=== PATIENT | female | born 1960 | race Caucasian/White ===

== ENCOUNTER → 2016-05-25 | Outpatient (CLI) | payer OTHER ==
--- NOTE | 2016-05-25 10:46 | XR ---
EXAMINATION TYPE: XR foot complete RT DATE OF EXAM: 05/25/2016 10:33 AM COMPARISON: NONE HISTORY: Foot pain TECHNIQUE: 3 views right foot FINDINGS: Since some varus deformity of the distal fifth digit and fourth digits are present. Postsur gical changes present over the first phalanx. Joint spaces are preserved. The Achilles tendon and lc ntar calcaneal heel spurs are present. IMPRESSION: Chronic changes. No acute osseous abnormality is evident.
--- NOTE | 2016-05-25 10:48 | XR ---
EXAMINATION TYPE: XR calcaneus 2V RT DATE OF EXAM: 05/25/2016 10:33 AM COMPARISON: NONE HISTORY: Pain TECHNIQUE: Right calcaneus is examined in 2 views. FINDINGS: Plantar and Achilles tendon calcaneal heel spurs are present. Soft tissues are normal. IMPRESSION: Normal two-view calcaneus
== END | disposition home or self-care (01) ==
LOC: RADXRMAIN 09:55
PROVIDERS: ATTEND Family Medicine
DX: M79.671 Pain in right foot (principal)

== ENCOUNTER 2016-10-27 08:51 | Day surgery (SDC) | payer OTHER ==
--- NOTE | 2016-10-26 12:10 | HP ---
DATE OF ADMISSION: CHIEF COMPLAINT: Right shoulder pain. 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 She is having pain with overhead use and at night. She has tried previous injections along with medications and stretching exercises with only partial temporary relief. She notes persistent problems that limit her. PAST MEDICAL HISTORY: Significant for type 2 diabetes, hypertension, and arthritis. PAST SURGICAL HISTORY: Significant for foot surgery. CURRENT MEDICATIONS: 1. Metformin. 2. Triamterene. 3. Levothyroxine. 4. Diclofenac. She denies drug allergies. FAMILY HISTORY: Negative. SOCIAL HISTORY: Negative for current tobacco or alcohol use. A 16-point review of systems otherwise reviewed and is noncontributory. On examination, the patient is approximately 5 foot 1, 160 pounds of endomorphic habitus. HEENT exam is nonfocal. Neck is supple. On examination of her right shoulder, she is tender about the anterior subacromial space. Moderate subacromial crepitus is noted. Active range of motion, forward elevation 155 degrees, external rotation with arm at side 65 degrees, internal rotation to L1. Motor strength is 5-/5 for external rotation and abduction. Goode, Neer and speed tests are positive. Her distal neurovascular exam appears be intact in the right upper extremity. MRI report from 08/28/2016 of the right shoulder shows a supraspinatus tendon tear with biceps tendinosis. IMPRESSION: Symptomatic right rotator cuff tear/bicipital tendinosis. RECOMMENDATIONS: I talked to the patient at length regarding her treatment options. She remains symptomatic despite conservative treatment. After thorough discussion, she opts to proceed with surgery. We will plan to proceed with arthroscopic evaluation with probable subacromial decompression, rotator cuff repair, possible biceps tenotomy. Risks and benefits are discussed at length in layman terms. The patient underwent preoperative medical evaluation by Dr. Valdez.
[~2016-10-27 08:51] MED LIST: DEXAMETHASONE SOD PHOSPHATE 10 MG/ML 1 ML VIAL IV ONE; HYDROmorphone 1 MG/ML 1 ML SYRINGE IVP PRN; LACTATED RINGERS 1,000 ML IV SCH; MIDAZOLAM 2 MG/2 ML VIAL IV PRN; SCOPOLAMINE 1.5MG/72HR PATCH TRANSDERM ONE; ceFAZolin 2 GM in SODIUM CHLORIDE 0.9% 100 ML IVPB ONE
[2016-10-27 09:10] VITALS: RESP 16
[2016-10-27] MEDS ORDERED: LIDOCAINE 1% 20 ML VIAL (10MG/ML) FOR IV START INTRADERMA ONE (09:22)
[2016-10-27] MEDS: ONDANSETRON 4 MG/2 ML VIAL IVP ONE ×3 (09:28→13:57)
[2016-10-27 09:29] LABS: Glucose,Whole Blood 146 mg/dL (75-99)
[2016-10-27] MEDS ORDERED: MIDAZOLAM 2 MG/2 ML VIAL IVP ONE ×2 (09:40→10:45)
[2016-10-27] MEDS ORDERED: fentaNYL (PF) 50 MCG/ML 2 ML AMP IVP ONE ×2 (09:40→10:45)
--- NOTE | 2016-10-27 10:15 | P.ONQ ---
Anesthesiology Proc Note - PNB - Peripheral Nerve Block Performed Right Interscalene Single Time Out Performed: Yes Indication: Acute Post-Operative Pain, Analgesia Specifically requested for management of pain by : Harrison Borden Sedation Type: Sedate with meaningful contact maintained Preparation: Sterile Prep Position: Supine Catheter: None Needle Types: Other (see comment) (Pajunk Sonoplex) Needle Size: 50mm (2") Needle Gauge: Other (see comment) (22) Technique: Ultrasound Injectate: Other (see comment) (Ropivicane 0.5% 15cc plus Lidocaine 2% 15cc) Adjunct: Epinephrine (see comment for dilution ratio) (1:200,000) Blood Aspirated: No Pain Paresthesia on Injection Noted: No Resistance on Injection: Normal Events: Uneventful and Well Tolerated
[2016-10-27] MEDS ORDERED: PHENYLEPHRINE-0.9% NACL SYG 1 MG/10 ML SYRINGE ONE (11:10)
[2016-10-27] MEDS ORDERED: SUCCINYLCHOLINE CHLORIDE 100 MG/5 ML SYR IV ONE (11:10)
[2016-10-27] MEDS ORDERED: PROPOFOL 10 MG/ML 20 ML VIAL IV ONE (11:10)
[2016-10-27] MEDS ORDERED: fentaNYL (PF) 50 MCG/ML 2 ML AMP ONE (11:10)
[2016-10-27] MEDS ORDERED: LACTATED RINGERS 1,000 ML IV ONE (11:35)
--- NOTE | 2016-10-27 12:39 | P.OP ---
Date of Procedure: 10/27/16 Preoperative Diagnosis: Symptomatic right rotator cuff tear Postoperative Diagnosis: 3 cm right shoulder rotator cuff tear/high-grade partial-thickness tear long head of the biceps/impingement Procedure(s) Performed: Right shoulder arthroscopic subacromial decompression/biceps tenotomy/rotator cuff repair Implants: Mitec 4.75 mm corkscrew anchor 4 Anesthesia: lary BELLAMY Surgeon: Harrison Borden [facility] Att[facility] #1: Joao Graff Estimated Blood Loss (ml): 10 Pathology: none sent Condition: stable Disposition: PACU Indications for Procedure: The patient's a 56-year-old female who presents with progressive right shoulder pain despite conservative measures. Clinically and by MRI she was noted have a symptomatic rotator cuff tear. A discussion of the risks and benefits of operative intervention versus continued conservative measures was made with the patient. She opted to proceed with surgery. Operative risks to include infection, neurovascular injury, possible tendon rerupture, possible postoperative stiffness and need for subsequent procedures was discussed. Informed consent was obtained. Operative Findings: As below Description of Procedure: The patient was brought to the operating room, and after induction of general anesthesia I examined the right shoulder. There is no gross block to passive motion. There was no gross glenohumeral instability. She is placed into a beachchair position. The bony prominences were appropriately padded. The right upper extremity was prepped and draped in normal fashion. The bony outlines the acromion, distal clavicle, and coracoid process were outlined with a skin marker. The glenohumeral joint was inflated with 50 mL of saline utilizing a spinal needle from posterior approach. A posterior portal was made through a 5 mm skin incision 1 cm medial and inferior to the posterior lateral border of the acromion. A blunt trocar was used to easily into the joint. Diagnostic arthroscopy was performed. An anterior portals made just lateral to the coracoid process through a 5 mm skin incision entering the joint above the subscapularis tendon. The subscapularis appeared intact. The anterior labrum was intact. On inspection the biceps, high-grade partial-thickness tear involving the intra-articular portion was noted. It was elected to proceed with tenotomy at this point. The biceps was released from the superior labrum and allowed to retract to the bicipital groove with electrocautery. On inspection the rotator cuff it appeared intact on the articular surface. The posterior labrum was intact. The inferior recess was inspected. Minimal degenerative changes involving glenoid or humeral head were noted. The arthroscope was then placed into the subacromial space. A lateral portal was made through a 5 mm skin incision 2 cm inferior to the anterior lateral border of the acromion. The soft tissue on the undersurface of the acromion was debrided with motorized shaver and electrocautery clearly defining the anterior medial and lateral borders as well as the distal clavicle. An anterior inferior acromioplasty is performed with a motorized meche starting anterolateral , then extending this was serially then medially. I was able to convert to a flat acromion. This was verified from the posterior lateral viewing portals. Attention was then paid towards the rotator cuff. A 3 cm tear involving the bursal surface of the supraspinatus and a portion the infraspinatus was noted. There were a few fibers intact on the articular surface. This was debrided with motorized shaver completely tear. The greater tuberosity was lightly decorticated with a motorized meche down to a bleeding bony surface. The rotator cuff was easily mobilized back to the tuberosity. An accessory superior lateral portals made through a 4 mm skin incision just off the lateral edge of the acromion. This was used for anchor placement. Two 4.75 millimeter bioabsorbable anchors were then placed utilizing the appropriate starting awl just off the articular surface. #2 tape was then passed through the rotator cuff with a scorpion suture passer. A lateral row was created crisscrossing the sutures and appropriate tension was performed. Again to anchors 4.75 mm in diameter were placed. Good purchase was obtained. Final arthroscopic view showed adequate striction and compression of the footprint. The arthroscope was then removed. The portals were closed with 3-0 nylon sutures. A sterile dressing was applied in addition to an abductor brace. The patient was awoken from general anesthesia and transferred to the recovery room in good condition. Blood loss was estimated 10 mL. No complications were incurred. Sponge and needle counts were correct at the end the case.
[2016-10-27 12:45] VITALS: TEMP 96.8
[2016-10-27 12:57] LABS: Glucose,Whole Blood 169 mg/dL (75-99)
[2016-10-27 13:46] VITALS: PULSE 94
[2016-10-27 14:31] VITALS: BP 122/79
== END 2016-10-27 14:45 | disposition home health service (06) ==
LOC: OR 08:51
PROVIDERS: ATTEND Orthopaedic Surgery
DX: M75.111 Incomplete rotator cuff tear or rupture of right shoulder, not specified as traumatic (principal); S46.111A Strain of muscle, fascia and tendon of long head of biceps, right arm, initial encounter; X58.XXXA Exposure to other specified factors, initial encounter; M75.41 Impingement syndrome of right shoulder; E11.9 Type 2 diabetes mellitus without complications; Z79.84 Long term (current) use of oral hypoglycemic drugs; I10 Essential (primary) hypertension; Z79.1 Long term (current) use of non-steroidal anti-inflammatories (NSAID); Z79.899 Other long term (current) drug therapy; E07.9 Disorder of thyroid, unspecified; Z79.52 Long term (current) use of systemic steroids
CPT/HCPCS: 64415; 29826; 29827; C1713; C1894; J2250; J1100; J0690; J2405; J3010; J2370; J0330; J2704

== ENCOUNTER → 2017-08-20 | Outpatient (CLI) | payer OTHER ==
--- NOTE | 2017-08-21 20:02 | XR ---
EXAMINATION TYPE: XR foot complete RT DATE OF EXAM: 08/20/2017 CLINICAL HISTORY: Right foot pain after stepping injury. TECHNIQUE: Frontal, lateral, and oblique images of the right foot are obtained. COMPARISON: Right foot x-ray May 25, 2016. FINDINGS: There is no acute fracture/dislocation evident in the right foot. There is evidence of bun ion correction surgery first toe, there is persistent cerclage wire in the first proximal phalanx. Al ignment is stable with slight varus deformity and mild to moderate joint space loss first metatarsoph alangeal joint redemonstrated. Pineda's toe is redemonstrated. Flexion in the toes is again seen. The re are small to moderate-sized superior calcaneal spurs that are redemonstrated. Mild diffuse subcuta neous edema is redemonstrated. IMPRESSION: There is no acute fracture or dislocation in the right foot. No significant change from prior x-ray.
== END | disposition home or self-care (01) ==
LOC: RADXRMAIN 16:02
PROVIDERS: ATTEND Family Medicine
DX: M79.671 Pain in right foot (principal)

== ENCOUNTER → 2017-09-29 | Outpatient (CLI) | payer OTHER ==
[2017-09-29 10:23] LABS: Basophils % (A) 0 %; Eosinophils # (A) 0.2 k/uL (0-0.7); Eosinophils % (A) 5 %; HCT 34.8 % (34.0-46.0); Hypochromasia Slight; Lymphocytes # (A) 1.5 k/uL (1.0-4.8); Lymphocytes % (A) 37 %; MCHC 31.5 g/dL (31.0-37.0); MCV 76.2 fL (80.0-100.0); Mean Platelet Volume 6.8; Microcytosis Slight; Monocytes # (A) 0.2 k/uL (0-1.0); Monocytes % (A) 5 %; Neutrophils # (A) 2.1 k/uL (1.3-7.7); Neutrophils % (A) 51 %; Platelet Count 385 k/uL (150-450); RBC 4.56 m/uL (3.80-5.40); RDW 15.2 % (11.5-15.5); WBC 4.2 k/uL (3.8-10.6)
[2017-09-29 10:41] LABS: ALT 30 U/L (9-52); AST 22 U/L (14-36); Albumin 3.8 g/dL (3.5-5.0); Alkaline Phosphatase 116 U/L (38-126); Anion Gap 10 mmol/L; Blood Urea Nitrogen 15 mg/dL (7-17); Calcium 9.1 mg/dL (8.4-10.2); Carbon Dioxide 28 mmol/L (22-30); Chloride 103 mmol/L (98-107); Cholesterol 230 mg/dL (<200); Glucose 147 mg/dL (74-99); HDL Cholesterol 40 mg/dL (40-60); LDL Cholesterol,Calculated 163 mg/dL (0-99); Potassium 3.5 mmol/L (3.5-5.1); Sodium 141 mmol/L (137-145); Total Bilirubin 0.3 mg/dL (0.2-1.3); Total Protein 6.9 g/dL (6.3-8.2); Triglycerides 136 mg/dL (<150)
== END | disposition home or self-care (01) ==
LOC: LABWHC1 09:07
PROVIDERS: ATTEND Family Medicine
DX: Z00.00 Encounter for general adult medical examination without abnormal findings (principal); Z01.812 Encounter for preprocedural laboratory examination; E11.9 Type 2 diabetes mellitus without complications; E78.5 Hyperlipidemia, unspecified; I10 Essential (primary) hypertension
CPT/HCPCS: 36415; 80053; 80061; 84439; 84443; 85025

== ENCOUNTER → 2017-10-23 | Outpatient (CLI) | payer OTHER ==
[2017-10-23 10:07] LABS: Basophils % (A) 0 %; Eosinophils # (A) 0.3 k/uL (0-0.7); Eosinophils % (A) 5 %; HCT 36.7 % (34.0-46.0); HGB 11.5 gm/dL (11.4-16.0); Lymphocytes % (A) 34 %; MCH 23.4 pg (25.0-35.0); MCHC 31.3 g/dL (31.0-37.0); MCV 74.8 fL (80.0-100.0); Mean Platelet Volume 6.1; Microcytosis Slight; Monocytes # (A) 0.3 k/uL (0-1.0); Monocytes % (A) 6 %; Neutrophils % (A) 52 %; Platelet Count 391 k/uL (150-450); RBC 4.91 m/uL (3.80-5.40); RDW 15.3 % (11.5-15.5); WBC 5.8 k/uL (3.8-10.6)
[2017-10-23 10:18] LABS: ALT 31 U/L (9-52); AST 23 U/L (14-36); Albumin 4.1 g/dL (3.5-5.0); Alkaline Phosphatase 144 U/L (38-126); Anion Gap 10 mmol/L; Blood Urea Nitrogen 13 mg/dL (7-17); Calcium 9.3 mg/dL (8.4-10.2); Carbon Dioxide 29 mmol/L (22-30); Chloride 100 mmol/L (98-107); Glucose 139 mg/dL (74-99); Potassium 3.9 mmol/L (3.5-5.1); Sodium 139 mmol/L (137-145); Total Bilirubin 0.4 mg/dL (0.2-1.3); Total Protein 7.3 g/dL (6.3-8.2)
== END | disposition home or self-care (01) ==
LOC: LABPAT 09:39
PROVIDERS: ATTEND Family Medicine
DX: Z01.818 Encounter for other preprocedural examination (principal); Z01.812 Encounter for preprocedural laboratory examination
CPT/HCPCS: 36415; 80053; 85025; 93005

== ENCOUNTER 2017-10-29 05:57 | Day surgery (SDC) | payer OTHER ==
[2017-10-26 09:05] VITALS: BMI 31.4
--- NOTE | 2017-10-28 09:57 | HP ---
HISTORY AND PHYSICAL CHIEF COMPLAINT: Left shoulder pain. HISTORY OF PRESENT ILLNESS: The patient is a 57-year-old, left-hand dominant female who presents with progressive left shoulder pain, worsening over the past 6 months. She is having pain with overhead use and at night. She has tried an injection along with medications with only partial temporary relief. She notes the pain bothers her daily. PAST MEDICAL HISTORY: Significant for type 2 diabetes, hypertension. PAST SURGICAL HISTORY: Significant for right shoulder arthroscopy in addition to foot surgery. CURRENT MEDICATIONS: 1. Levothyroxine. 2. Metformin. 3. Triamterene/hydrochlorothiazide. She denies drug allergies. FAMILY HISTORY: Negative. SOCIAL HISTORY: Negative for current tobacco or alcohol use. REVIEW OF SYSTEMS: A 16 point review of systems otherwise reviewed and is noncontributory. PHYSICAL EXAMINATION: The patient is approximately 5 foot 1, 160 pounds of endomorphic habitus. HEENT exam is nonfocal. Neck is supple. On examination of her left shoulder, she is tender about the anterior subacromial space. She has mild subacromial crepitus. Active range of motion, forward elevation 135 degrees, external rotation with the arm side 50 degrees, internal rotation L4. Motor strength is 5-/5 for abduction and external rotation. Goode, Neer and Speed tests are positive. Her distal neurovascular exam otherwise appears intact in the left upper extremity. MRI report for the left shoulder shows evidence of a high-grade partial-thickness articular surface tear involving the distal supraspinatus. There is also question of an intra-articular biceps tear. IMPRESSION: 1. Left shoulder impingement with high-grade partial-thickness rotator cuff tear. 2. Left shoulder bicipital tendinosis, possible tear. 3. Type 2 diabetes. RECOMMENDATIONS: I talked to the patient at length regarding her condition and treatment options. At this point, she remains quite symptomatic despite conservative measures. After a thorough discussion, she opts to proceed with surgery. We will plan to proceed with arthroscopic evaluation with probable subacromial decompression, possible rotator cuff debridement versus repair, and possible biceps tenotomy. Risks and benefits were discussed at length in layman's terms. The patient underwent preoperative medical evaluation by Dr. Valdez. MMDARIOL / HEATHERN: [id number] /
[~2017-10-29 05:57] MED LIST changes: +HYDROmorphone 0.5 MG/0.5 ML SYRINGE IVP PRN; -HYDROmorphone 1 MG/ML 1 ML SYRINGE IVP PRN; +ONDANSETRON 4 MG/2 ML VIAL IVP ONE; -SCOPOLAMINE 1.5MG/72HR PATCH TRANSDERM ONE; +ceFAZolin 1,000 MG in DEXTROSE/WATER 1 50ML.BAG IV ONE; -ceFAZolin 2 GM in SODIUM CHLORIDE 0.9% 100 ML IVPB ONE
[2017-10-29] MEDS ORDERED: LIDOCAINE 1% 20 ML VIAL (10MG/ML) FOR IV START INTRADERMA ONE (06:50)
[2017-10-29 07:06] LABS: Glucose,Whole Blood 149 mg/dL (75-99)
[2017-10-29] MEDS ORDERED: fentaNYL (PF) 50 MCG/ML 2 ML AMP IVP ONE (07:15)
--- NOTE | 2017-10-29 07:49 | P.ONQ ---
Anesthesiology Proc Note - PNB - Peripheral Nerve Block Performed Left Interscalene Single Procedure Start Time: 07:15 Procedure Stop Time: :25 Indication: Requested by physician Specifically requested for management of pain by : Harrison Borden Sedation Type: Sedate with meaningful contact maintained Preparation: Sterile Prep Position: Supine Needle Types: Other (see comment) (21 G PUJUNK) Needle Size: 50mm (2") Needle Gauge: 21 Technique: Ultrasound Injectate: 0.5% Ropivacaine (see comment for volume) (20 ml) Resistance on Injection: Normal Events: Uneventful and Well Tolerated
[2017-10-29] MEDS ORDERED: LIDOCAINE 1% INJ 10MG/ML (20 ML MDV) ONE (07:58)
[2017-10-29] MEDS ORDERED: ROPIVACAINE 5 MG/ML 30 ML VIAL ONE (07:58)
[2017-10-29] MEDS ORDERED: SUCCINYLCHOLINE CHLORIDE 100 MG/5 ML SYR IV ONE (07:58)
[2017-10-29] MEDS ORDERED: ROCURONIUM BROMIDE 10 MG/ML 10 ML VIAL IV ONE (07:58)
[2017-10-29] MEDS ORDERED: PROPOFOL 10 MG/ML 20 ML VIAL IV ONE (07:58)
[2017-10-29] MEDS ORDERED: NEOSTIGMINE 1 MG/ML 10 ML VIAL ONE (07:58)
[2017-10-29] MEDS ORDERED: GLYCOPYRROLATE 0.2 MG/ML 2 ML VIAL ONE (07:58)
[2017-10-29] MEDS ORDERED: ePHEDrine SULFATE/0.9% NACL/PF 50 MG/5 ML SYRINGE IV ONE (07:58)
[2017-10-29] MEDS ORDERED: fentaNYL (PF) 50 MCG/ML 2 ML AMP ONE (07:58)
[2017-10-29] MEDS ORDERED: EPINEPHrine (PF) 1 ML in SODIUM CHLORIDE 0.9% IRRIGATIO 3,000 ML IRRIGATION ONE ×8 (08:12)
[2017-10-29] MEDS ORDERED: LACTATED RINGERS 1,000 ML IV ONE (09:19)
--- NOTE | 2017-10-29 09:36 | P.OP ---
Date of Procedure: 10/29/17 Preoperative Diagnosis: Left shoulder impingement/rotator cuff tear Postoperative Diagnosis: Same in addition to 1.5 cm rotator cuff tear/high-grade partial-thickness tear long head of the biceps intra-articular portion Procedure(s) Performed: Left shoulder arthroscopic subacromial decompression/arthroscopic rotator cuff repair/biceps tenotomy Implants: Arthrex 4.75 mm swivel lock anchor 1, 5.5 mm swivel lock anchor 1 Anesthesia: EVA, regional Surgeon: Harrison Borden Estimated Blood Loss (ml): 10 Pathology: none sent Condition: stable Disposition: PACU Indications for Procedure: The patient's a 57-year-old female who presents with progressive left shoulder pain despite conservative measures. A discussion of the risks and benefits of operative intervention versus continued conservative measures was made with the patient. She opted to proceed with surgery. Operative risks to include infection, neurovascular injury, development of blood clots, possible tendon rerupture, possible postoperative stiffness and need for subsequent procedures was discussed. Informed consent was obtained. Operative Findings: As below Description of Procedure: The patient was brought to the operating room, and after induction of general anesthesia was placed in a beachchair position. The bony prominences were appropriately padded. I examined the left shoulder. There was no gross block to passive motion. There was no gross glenohumeral instability. The left upper extremity was prepped and draped in normal fashion. The bony outlines the acromion, distal clavicle, and coracoid process were outlined with a skin marker. The glenohumeral joint was inflated with 50 mL of saline utilizing a spinal needle from a posterior approach. A posterior portal was made through a 5 mm skin incision 1 a medial and inferior to the posterior lateral border the acromion. A blunt trocar was used to easily into the joint. Diagnostic arthroscopy was performed. An anterior portal was made just lateral to the coracoid process entering the joint above the subscapularis tendon. The subscapularis appeared to be intact. Anterior labrum was intact. There is no significant chondral injury involving humeral head or glenoid. On inspection of the biceps, a high-grade partial-thickness tear involving injury to a portion was noted. It was elected to proceed with tenotomy at this point. The biceps was released from the superior labrum with electrocautery and allowed to retract to the bicipital groove. On inspection the rotator cuff, a full- thickness tear involving the anterior aspect of the supraspinatus was noted. The edges were debrided with a motorized shaver. The posterior portion the cuff appeared intact. The inferior recess was inspected. The arthroscope was placed into the subacromial space. A lateral portal was made through a 5 mm skin incision 2 cm inferior to the anterolateral border the acromion. The soft tissue on the undersurface of the acromion was debrided with a motorized shaver and with electrocautery clearly defining the anterior medial and lateral borders. The coracoacromial ligament was detached from the anterior acromion with electrocautery. An anterior inferior acromioplasty is performed with a motorized meche starting anterolateral, then extending this posteriorly, then extending this medially. Is able to convert to a flat acromion. This is verified from the posterior and lateral viewing portals. The rotator cuff was then inspected. A full-thickness tear involving the anterior aspect the supraspinatus was noted to measuring proximal 1.5 cm. The greater tuberosity was lightly decorticated utilizing a motorized meche Denno bleeding bony surface. Accessory superior lateral portals made just off the lateral edge of the acromion for placement of the anchors. A starting awl was used just off the articular surface for placement of a 4.75 mm swivel lock anchor. This was preloaded with #2 fiber tape. These were then passed through the rotator cuff with a scorpion suture passer. A fiber link was placed in the central portion of the tear to help with reapproximation. A 5.5 mm swivel lock anchor was placed laterally utilizing all the sutures. They were appropriately tensioned. Final inspection showed adequate compression of the footprint. The arthroscope was then removed. The portals were closed with simple 3-0 nylon suture. A sterile dressing was applied in addition to an abductor brace. The patient was then awoken from general anesthesia and transferred to the recovery room in good condition. Blood loss was estimated 10 mL. No complications were incurred. Sponge and needle counts were correct at the end of the case.
[2017-10-29 09:43] VITALS: TEMP 96.8
[2017-10-29 09:51] VITALS: RESP 18
[2017-10-29 10:51] VITALS: BP 130/77; PULSE 100
== END 2017-10-29 11:43 | disposition home or self-care (01) ==
LOC: OR 05:57
PROVIDERS: ATTEND Orthopaedic Surgery
DX: M75.102 Unspecified rotator cuff tear or rupture of left shoulder, not specified as traumatic (principal); S46.112A Strain of muscle, fascia and tendon of long head of biceps, left arm, initial encounter; X58.XXXA Exposure to other specified factors, initial encounter; I10 Essential (primary) hypertension; E11.9 Type 2 diabetes mellitus without complications; Z79.84 Long term (current) use of oral hypoglycemic drugs; E78.5 Hyperlipidemia, unspecified; Z79.890 Hormone replacement therapy; Z79.899 Other long term (current) drug therapy; Z79.1 Long term (current) use of non-steroidal anti-inflammatories (NSAID); Z79.891 Long term (current) use of opiate analgesic
CPT/HCPCS: 64415; 29826; 29827; C1713 ×3; C1894; J2250; J1100; J2710; J2405; J0171; J2001; J3010; J0690; J2795; J0330; J2704

== ENCOUNTER → 2017-12-01 | Outpatient (CLI) | payer OTHER ==
[2017-12-01 11:19] LABS: Basophils % (A) 0 %; Eosinophils # (A) 0.2 k/uL (0-0.7); Eosinophils % (A) 4 %; HCT 36.5 % (34.0-46.0); HGB 11.3 gm/dL (11.4-16.0); Lymphocytes # (A) 1.8 k/uL (1.0-4.8); Lymphocytes % (A) 32 %; MCH 23.6 pg (25.0-35.0); MCHC 31.1 g/dL (31.0-37.0); MCV 75.8 fL (80.0-100.0); Mean Platelet Volume 6.9; Microcytosis Slight; Monocytes # (A) 0.3 k/uL (0-1.0); Monocytes % (A) 5 %; Neutrophils % (A) 56 %; Platelet Count 381 k/uL (150-450); RBC 4.81 m/uL (3.80-5.40); RDW 15.2 % (11.5-15.5); WBC 5.4 k/uL (3.8-10.6)
--- NOTE | 2017-12-01 11:21 | XR ---
EXAMINATION TYPE: XR sternum DATE OF EXAM: 12/01/2017 COMPARISON: NONE HISTORY: Sternal pain/tenderness and palpable abnormality superior to the sternum since 11/11/2017. TECHNIQUE: 2 views of the sternum were obtained. FINDINGS: No suspicious osseous lesion is seen within the sternum. No cortical erosion or periosteal reaction. No evidence of acute fracture or dislocation. No cortical disruption is seen. Visualized linda ngs appear well aerated. IMPRESSION: No suspicious abnormality of the sternum. If there is further clinical concern bone scan could evaluate for focal uptake. Given the palpable abnormality ultrasound could also be performed fo r the suprasternal palpable mass.
[2017-12-01 11:47] LABS: Albumin 3.9 g/dL (3.5-5.0); Calcium 9.4 mg/dL (8.4-10.2); Potassium 3.6 mmol/L (3.5-5.1); Total Bilirubin 0.3 mg/dL (0.2-1.3); Total Protein 7.1 g/dL (6.3-8.2)
[2017-12-01 12:03] LABS: T4, Free (Free Thyroxine) 1.29 ng/dL (0.78-2.19)
== END | disposition home or self-care (01) ==
LOC: LABWHC1 10:27
PROVIDERS: ATTEND Family Medicine
DX: R22.1 Localized swelling, mass and lump, neck (principal)
CPT/HCPCS: 36415; 71120; 80053; 84439; 84443; 85025

== ENCOUNTER → 2018-03-01 | Outpatient (CLI) | payer OTHER ==
--- NOTE | 2018-03-01 14:06 | XR ---
EXAMINATION TYPE: XR foot complete bilateral DATE OF EXAM: 03/01/2018 CLINICAL HISTORY: Bilateral foot pain. Diabetic. No known injury. History of bunion surgery. TECHNIQUE: Frontal, lateral, and oblique images of bilateral feet were obtained. COMPARISON: 08/20/2017 FINDINGS: There is been prior bunion repair bilaterally with proximal phalanx cerclage wires. There r emains a hallux valgus deformity of both first metatarsals. Pineda's toe is redemonstrated bilaterall y. Very mild degenerative changes of the first metatarsal phalangeal joint demonstrated as opposing s urface sclerosis and joint space narrowing are again seen. No evidence of acute fracture or dislocati on seen within either foot. Bilaterally there are small plantar heel spurs. Very small bilateral Achi lles heel spurs are also seen. IMPRESSION: 1. No acute fracture or dislocation of either foot. Similar-appearing mild arthropathy at the first m etatarsophalangeal joint on the right foot in comparison to the prior. Symmetric mild arthropathy is seen on the left. Achilles and plantar heel spurs are redemonstrated.
== END ==
LOC: RADXRMAIN 12:18
PROVIDERS: ATTEND Family Medicine
DX: M12.88 Other specific arthropathies, not elsewhere classified, other specified site (principal); M77.31 Calcaneal spur, right foot

== ENCOUNTER 2021-01-30 23:39 | Emergency (ER) | payer OTHER, MEDICARE ==
[2021-01-30 23:51] VITALS: TEMP 98
[2021-01-31] MEDS ORDERED: MORPHINE SULFATE 2 MG/ML SYRINGE IVP STA (00:07)
[2021-01-31] MEDS ORDERED: ONDANSETRON 4 MG/2 ML VIAL IVP STA (00:08)
[2021-01-31 00:29] LABS: Basophils % (A) 0 %; Eosinophils # (A) 0.2 k/uL (0-0.7); Eosinophils % (A) 2 %; HCT 33.4 % (34.0-46.0); HGB 11.4 gm/dL (11.4-16.0); Lymphocytes # (A) 2.2 k/uL (1.0-4.8); Lymphocytes % (A) 20 %; MCH 32.9 pg (25.0-35.0); MCHC 34.2 g/dL (31.0-37.0); MCV 96.3 fL (80.0-100.0); Mean Platelet Volume 7.6; Monocytes # (A) 0.8 k/uL (0-1.0); Monocytes % (A) 7 %; Neutrophils # (A) 7.7 k/uL (1.3-7.7); Neutrophils % (A) 69 %; Platelet Count 447 k/uL (150-450); RBC 3.47 m/uL (3.80-5.40); RDW 13.8 % (11.5-15.5); WBC 11.2 k/uL (3.8-10.6)
[2021-01-31 00:50] LABS: INR 0.9 (<1.2); Partial Thromboplastin Time 23.3 sec (22.0-30.0); Prothrombin Time 9.4 sec (9.0-12.0)
[2021-01-31 00:53] LABS: ALT 11 U/L (4-34); AST 19 U/L (14-36); African American GFR (CKD) >90 (>60 ml/min/1.73 sqM); Albumin 3.7 g/dL (3.5-5.0); Alkaline Phosphatase 118 U/L (38-126); Anion Gap 7 mmol/L; Blood Urea Nitrogen 10 mg/dL (7-17); Carbon Dioxide 25 mmol/L (22-30); Chloride 103 mmol/L (98-107); Glucose 135 mg/dL (74-99); Lipase 70 U/L (23-300); Magnesium 1.9 mg/dL (1.6-2.3); Non-African American GFR(CKD) >90 (>60 ml/min/1.73 sqM); Potassium 3.7 mmol/L (3.5-5.1); Sodium 135 mmol/L (137-145); Total Bilirubin 0.6 mg/dL (0.2-1.3); Total Protein 7.1 g/dL (6.3-8.2)
--- NOTE | 2021-01-31 01:05 | XR ---
EXAMINATION TYPE: XR ribs RT w pa chest xray DATE OF EXAM: 01/31/2021 COMPARISON: NONE HISTORY: Rib pain TECHNIQUE: 3 views FINDINGS: Heart and mediastinum are normal. Lungs are clear of infiltrate. There is no pleural effusi on. There are no hilar masses. Costophrenic angles are clear. There is no evidence of pleural effusion or pneumothorax. The right ribs appear intact. IMPRESSION: Normal chest. Normal right ribs. No fracture seen.
--- NOTE | 2021-01-31 01:20 | ED ---
General Adult HPI - General Chief complaint: Chest Pain Stated complaint: Chest Pain Time Seen by Provider: 01/30/21 23:57 Source: patient Mode of arrival: wheelchair Limitations: no limitations - History of Present Illness Initial comments: 60 year-old female patient presents to the emergency department for evaluation of right sided chest pain. Patient states she was sitting on the floor with her grandchild playing, she went to get up and had a sharp, stabbing pain to the right side of her chest. States that the pain worsens with inspiration and mov ement. She does feel short of breath. She was diagnosed with COVID 01/18/21. States she is much improved but still has lingering cough. She denies any recent fever or chills. Denies any history of heart problems. Is not a smoker. States her playing with her grandchild was not strenuous in any way. Patient denies any recent rash, abdominal pain, nausea, vomiting, diarrhea, constipation, back pain, numbness, tingling, dizziness, weakness, hematuria, dysuria, urinary urgency, urinary frequency, headache, visual changes, or any other complaints. - Related Data Home Medications Medication Instructions Recorded Confirmed Levothyroxine Sodium [Synthroid] 75 mcg PO DAILY 06/12/14 10/26/17 Triamterene-Hctz 37.5-25Mg 1 tab PO DAILY 06/12/14 10/26/17 [Maxzide 37.5-25] metFORMIN HCL [Glucophage] 500 mg PO BID 06/12/14 10/26/17 Ibuprofen [Motrin] 600 mg PO Q6H PRN 10/22/16 10/26/17 Atorvastatin [Lipitor] 20 mg PO DAILY 10/26/17 10/26/17 Diclofenac Sodium [Voltaren] 50 mg PO BID PRN 10/26/17 10/26/17 Ketotifen 0.025% Ophth Soln 1 drop BOTH EYES BID 10/26/17 10/26/17 [Zaditor] Loratadine 10 mg PO DAILY 10/26/17 10/26/17 Phentermine HCl [Adipex P] 15 mg PO DAILY 10/26/17 10/26/17 Previous Rx's Medication Instructions Recorded HYDROcodone/APAP 7.5-325MG [[place] 1 tab PO Q4-6H PRN #28 tab 10/29/17 7.5-325] predniSONE 50 mg PO DAILY #5 tablet 01/31/21 Allergies Allergy/AdvReac Type Severity Reaction Status Date / Time No Known Allergies Allergy Verified 01/30/21 23:51 Review of Systems ROS Statement: Those systems with pertinent positive or pertinent negative responses have been documented in the HPI. ROS Other: All systems not noted in ROS Statement are negative. Past Medical History Past Medical History: Diabetes Mellitus, Hypertension, Thyroid Disorder Additional Past Medical History / Comment(s): SPURS ON RIGHT HEEL History of Any Multi-Drug Resistant Organisms: None Reported Past Surgical History: Orthopedic Surgery Additional Past Surgical History / Comment(s): BUNIONS BILATERAL IN 2015. Past Anesthesia/Blood Transfusion Reactions: No Reported Reaction Past Psychological History: No Psychological Hx Reported Smoking Status: Never smoker Past Alcohol Use History: Rare Past Drug Use History: None Reported - Past Family History Father Family Medical History: Cancer General Exam Limitations: no limitations General appearance: alert, in no apparent distress, other (This is a well- developed, well-nourished adult female patient in no acute distress. Vital signs upon presentation temperature 98.0F, pulse 110, respirations 18, blood pressure 121/78, pulse ox 95% on room air.) Eye exam: Present: normal appearance, PERRL, EOMI. Absent: scleral icterus, conjunctival injection, periorbital swelling ENT exam: Present: normal exam, normal oropharynx, mucous membranes moist Respiratory exam: Present: normal lung sounds bilaterally. Absent: respiratory distress, wheezes, rales, rhonchi, stridor Cardiovascular Exam: Present: normal rhythm, tachycardia, normal heart sounds. Absent: systolic murmur, diastolic murmur, rubs, gallop, clicks GI/Abdominal exam: Present: soft, normal bowel sounds. Absent: distended, tenderness, guarding, rebound, rigid Neurological exam: Present: alert, oriented X3, CN II-XII intact Psychiatric exam: Present: normal affect, normal mood Skin exam: Present: warm, dry, intact, normal color. Absent: rash Course Vital Signs 01/30/21 23:46 Temperature 98 F Pulse Rate 110 H Respiratory 18 Rate Blood Pressure 121/78 O2 Sat by Pulse 95 Oximetry EKG Findings - EKG Comments: EKG Findings:: EKG obtained at 2358 shows normal sinus rhythm with a ventricular rate of 98, [place] interval 156, QRS duration 74, QT 372, QTc 474. No evidence of ST elevation or depression. Medical Decision Making - Medical Decision Making 60-year-old female patient presented to the emergency department today for evaluation of right-sided chest pain. Physical examination revealed clear equal lung sounds. Pain was not reproducible with palpation. Was increased with breathing and movement. EKG was unremarkable. Chest x-ray negative. Right rib series negative. She did have elevated d-dimer. We did sent for CT chest angiography. Showed evidence for right middle lobe pneumonia. Patient is currently recovering from Covid. This is most likely viral pneumonia given normal white blood cell count and lack of a fever. We will start prednisone for persistent cough. She is instructed to follow up with her primary care physician for recheck in 1-2 days. Return parameters were discussed in detail. She verbalizes understanding and agrees with this plan. Case discussed with my attending Dr. Velez. - Lab Data Result diagrams: 01/31/21 00:21 01/31/21 00:21 Lab Results 01/31/21 01/31/21 01/31/21 Range/Units 00:21 00:21 00:21 WBC 11.2 H (3.8-10.6) k/uL RBC 3.47 L (3.80-5.40) m/uL Hgb 11.4 (11.4-16.0) gm/dL Hct 33.4 L (34.0-46.0) % MCV 96.3 (80.0-100.0) fL MCH 32.9 (25.0-35.0) pg MCHC 34.2 (31.0-37.0) g/dL RDW 13.8 (11.5-15.5) % Plt Count 447 (150-450) k/uL MPV 7.6 Neutrophils % 69 % Lymphocytes % 20 % Monocytes % 7 % Eosinophils % 2 % Basophils % 0 % Neutrophils # 7.7 (1.3-7.7) k/uL Lymphocytes # 2.2 (1.0-4.8) k/uL Monocytes # 0.8 (0-1.0) k/uL Eosinophils # 0.2 (0-0.7) k/uL Basophils # 0.0 (0-0.2) k/uL PT 9.4 (9.0-12.0) sec INR 0.9 (<1.2) APTT 23.3 (22.0-30.0) sec D-Dimer 1.08 H (<0.60) mg/L FEU Sodium 135 L (137-145) mmol/L Potassium 3.7 (3.5-5.1) mmol/L Chloride 103 (98-107) mmol/L Carbon Dioxide 25 (22-30) mmol/L Anion Gap 7 mmol/L BUN 10 (7-17) mg/dL Creatinine 0.49 L (0.52-1.04) mg/dL Est GFR (CKD-EPI)AfAm >90 (>60 ml/min/1.73 sqM) Est GFR (CKD-EPI)NonAf >90 (>60 ml/min/1.73 sqM) Glucose 135 H (74-99) mg/dL Calcium 9.0 (8.4-10.2) mg/dL Magnesium 1.9 (1.6-2.3) mg/dL Total Bilirubin 0.6 (0.2-1.3) mg/dL AST 19 (14-36) U/L ALT 11 (4-34) U/L Alkaline Phosphatase 118 (38-126) U/L Troponin I (0.000-0.034) ng/mL Total Protein 7.1 (6.3-8.2) g/dL Albumin 3.7 (3.5-5.0) g/dL Lipase 70 (23-300) U/L 01/31/21 Range/Units 00:21 WBC (3.8-10.6) k/uL RBC (3.80-5.40) m/uL Hgb (11.4-16.0) gm/dL Hct (34.0-46.0) % MCV (80.0-100.0) fL MCH (25.0-35.0) pg MCHC (31.0-37.0) g/dL RDW (11.5-15.5) % Plt Count (150-450) k/uL MPV Neutrophils % % Lymphocytes % % Monocytes % % Eosinophils % % Basophils % % Neutrophils # (1.3-7.7) k/uL Lymphocytes # (1.0-4.8) k/uL Monocytes # (0-1.0) k/uL Eosinophils # (0-0.7) k/uL Basophils # (0-0.2) k/uL PT (9.0-12.0) sec INR (<1.2) APTT (22.0-30.0) sec D-Dimer (<0.60) mg/L FEU Sodium (137-145) mmol/L Potassium (3.5-5.1) mmol/L Chloride (98-107) mmol/L Carbon Dioxide (22-30) mmol/L Anion Gap mmol/L BUN (7-17) mg/dL Creatinine (0.52-1.04) mg/dL Est GFR (CKD-EPI)AfAm (>60 ml/min/1.73 sqM) Est GFR (CKD-EPI)NonAf (>60 ml/min/1.73 sqM) Glucose (74-99) mg/dL Calcium (8.4-10.2) mg/dL Magnesium (1.6-2.3) mg/dL Total Bilirubin (0.2-1.3) mg/dL AST (14-36) U/L ALT (4-34) U/L Alkaline Phosphatase (38-126) U/L Troponin I <0.012 (0.000-0.034) ng/mL Total Protein (6.3-8.2) g/dL Albumin (3.5-5.0) g/dL Lipase (23-300) U/L - Radiology Data Radiology results: report reviewed, image reviewed 3 views of the right ribs at the chest x-ray were obtained. Report was reviewed in its entirety. Impression by Dr. Coronel shows normal chest. Normal right ribs. No fracture seen. CT chest angiography for pulmonary embolism was obtained. Report is reviewed in its entirety. Impression by Dr. Coronel shows no evidence of pulmonary embolism. There is some mild infiltrate and atelectasis right middle lobe of the costophrenic angle. Small area of atelectasis right lower lobe. Disposition Clinical Impression: Right-sided chest pain Disposition: HOME SELF-CARE Condition: Good Instructions (If sedation given, give patient instructions): Chest Pain (ED) Additional Instructions: Take medications as directed. Follow up with the primary care physician for recheck in 1-2 days. Return for any new, worsening, or concerning symptoms. Prescriptions: predniSONE 50 mg PO DAILY #5 tablet Is patient prescribed a controlled substance at d/c from ED?: No Referrals: Nikita Valdez MD [Primary Care Provider] - 1-2 days Time of Disposition: 01:54
--- NOTE | 2021-01-31 01:37 | CT ---
EXAMINATION TYPE: CT chest angio for PE DATE OF EXAM: 01/31/2021 COMPARISON: None HISTORY: Right sided chest pain, R/O PE CT DLP: 265.90 mGycm Automated exposure control for dose reduction was used. CONTRAST: Performed with IV Contrast, patient injected with 60 mL of Isovue 370. Images obtained from the thoracic inlet to the diaphragm with IV contrast. There are 3-D post process ed images. There is some mild infiltrate and atelectasis in the anterior right middle lobe. There is small area of atelectasis right posterior lung base. There is no mediastinal adenopathy. There are no hilar masses. Thoracic aorta appears normal. There i s no evidence of aneurysm or dissection. There is normal contrast opacification of the pulmonary arteries. There are no filling defects. Upper abdominal soft tissues are intact. The bony thorax is intact. There is no compression fracture in th e thoracic spine. Sternum is intact. There is no evidence of rib fracture. IMPRESSION: No evidence of pulmonary embolism. There is some mild infiltrate and atelectasis right middle lobe at the cardiophrenic angle. Small area of atelectasis right lower lobe.
[2021-01-31] MEDS ORDERED: predniSONE 50 MG TAB PO STA (01:51)
[2021-01-31 02:26] VITALS: BP 110/66; PULSE 84; RESP 16
== END 2021-01-31 02:26 | disposition home or self-care (01) ==
LOC: EC 23:39
DX: R07.89 Other chest pain (principal); E11.9 Type 2 diabetes mellitus without complications; I10 Essential (primary) hypertension; E07.9 Disorder of thyroid, unspecified; Z79.84 Long term (current) use of oral hypoglycemic drugs; Z79.899 Other long term (current) drug therapy
CPT/HCPCS: 99285; 96374; 96375; 36415; 93005; 85379; 80053; 83690; 83735; 84484; 85025; 85610; 85730; 71101; 71275; J2270; J7512; Q9967

== ENCOUNTER 2021-02-02 10:20 | Emergency (ER) | payer OTHER, MEDICARE ==
[2021-02-02 10:52] VITALS: RESP 18; TEMP 99.2
[2021-02-02] MEDS ORDERED: MORPHINE SULFATE 4 MG/ML SYRINGE IM STA (11:17)
[2021-02-02] MEDS ORDERED: ONDANSETRON ODT 4 MG TAB PO STA (11:29)
--- NOTE | 2021-02-02 12:06 | XR ---
EXAMINATION TYPE: XR chest 2V DATE OF EXAM: 02/02/2021 COMPARISON: Chest x-ray and CT 2 days ago. HISTORY: Right-sided chest pain. TECHNIQUE: Frontal and lateral views of the chest are obtained. FINDINGS: Slightly elevated right hemidiaphragm redemonstrated. There is no new suspicious focal air space opacity, pleural effusion, or pneumothorax seen. Persistent focal inferior anterior consolidat ion lateral view corresponds to the recent CT The cardiac silhouette size remains within normal limit s. The osseous structures are intact. IMPRESSION: Persistent anterior medial right middle lobe acute consolidation. No new infiltrate.
--- NOTE | 2021-02-02 12:09 | ED ---
Recheck HPI - General Chief Complaint: Recheck/Abnormal Lab/Rx Stated Complaint: chest pain/pulled muscle-revisit Time Seen by Provider: 02/02/21 10:58 Source: patient Mode of arrival: ambulatory - History of Present Illness Initial Comments: 60 year-old female patient presents to the emergency department for evaluation of right sided chest pain. A few days ago patient stood up from the floor and felt a pop in her chest and onset of pain. Patient was evaluated in the ED had extensive work-up including labs and CTA of the chest. Results showed right mid- lung pneumonia but she is recovering from COVID and thought is that acute pain was not related to that finding. Patient was discharged home. States that she rested and bent over to put some toys away today and the pain worsened. States it now radiates to her back. States that it worsens when she talks for long periods and when she takes a deep breath. Certain movements make it worse. She has been using a pillow to splint. Has not taken any pain medication. Has been taking steroids. Patient denies any recent rash, fever, chills, abdominal pain, nausea, vomiting, diarrhea, constipation, back pain, numbness, tingling, dizziness, weakness, hematuria, dysuria, urinary urgency, urinary frequency, headache, visual changes, or any other complaints. - Related Data Home Medications Medication Instructions Recorded Confirmed Triamterene-Hctz 37.5-25Mg 1 tab PO DAILY 06/12/14 02/02/21 [Maxzide 37.5-25] Atorvastatin [Lipitor] 40 mg PO DAILY 02/02/21 02/02/21 Levothyroxine Sodium 88 mcg PO DAILY 02/02/21 02/02/21 Naproxen Sodium [Aleve] 220 mg PO DAILY PRN 02/02/21 02/02/21 metFORMIN HCL [Glucophage XR] 750 mg PO BID 02/02/21 02/02/21 Previous Rx's Medication Instructions Recorded predniSONE 50 mg PO DAILY #5 tablet 01/31/21 Acetaminophen-Codeine 300-30mg 1 tab PO Q6H PRN #12 tablet 02/02/21 [Tylenol #3] Ibuprofen [Motrin] 600 mg PO Q8HR PRN #30 tab 02/02/21 Lidocaine 5% Patch [Lidoderm] 1 patch TOPICAL DAILY #30 patch 02/02/21 Allergies Allergy/AdvReac Type Severity Reaction Status Date / Time No Known Allergies Allergy Verified 02/02/21 11:49 Review of Systems ROS Statement: Those systems with pertinent positive or pertinent negative responses have been documented in the HPI. ROS Other: All systems not noted in ROS Statement are negative. Past Medical History Past Medical History: Diabetes Mellitus, Hypertension, Thyroid Disorder Additional Past Medical History / Comment(s): covid, SPURS ON RIGHT HEEL History of Any Multi-Drug Resistant Organisms: None Reported Past Surgical History: Orthopedic Surgery Additional Past Surgical History / Comment(s): BUNIONS BILATERAL IN 2015. Past Anesthesia/Blood Transfusion Reactions: No Reported Reaction Past Psychological History: No Psychological Hx Reported Smoking Status: Never smoker Past Alcohol Use History: Rare Past Drug Use History: Marijuana - Past Family History Father Family Medical History: Cancer General Exam General appearance: alert, in no apparent distress, other (This is a well- developed, well-nourished adult female patient in no acute distress. Vital signs upon presentation temperature 99.2F, pulse 100, respirations 18, blood pressure 135/80, pulse ox 96% on room air.) ENT exam: Present: normal exam, normal oropharynx, mucous membranes moist Respiratory exam: Present: normal lung sounds bilaterally, chest wall tenderness (Right anterior upper). Absent: respiratory distress, wheezes, rales, rhonchi, stridor Cardiovascular Exam: Present: regular rate, normal rhythm, normal heart sounds. Absent: systolic murmur, diastolic murmur, rubs, gallop, clicks GI/Abdominal exam: Present: soft, normal bowel sounds. Absent: distended, tenderness, guarding, rebound, rigid Neurological exam: Present: alert, oriented X3, CN II-XII intact Psychiatric exam: Present: normal affect, normal mood Skin exam: Present: warm, dry, intact, normal color. Absent: rash Course Vital Signs 02/02/21 02/02/21 10:50 11:21 Temperature 99.2 F Pulse Rate 100 Pulse Rate [ 96 Sitting Pulse Oximetery] Respiratory 18 Rate Blood Pressure 135/80 O2 Sat by Pulse 96 Oximetry Medical Decision Making - Medical Decision Making 60-year-old female patient presented to the emergency department today for evaluation of persistent right upper chest pain. Physical examination reveals clear equal lung sounds. Pain worsens with inspiration, talking, movement, palpation. She did have extensive evaluation couple of days ago which included negative lab work up, and CT angiography of the chest which showed right middle lobe consolidation felt to be related to recent cold mid infection. Patient was given pain medication here. Repeat chest x-ray was performed showed no evidence for pneumothorax or any new findings. Did discuss with patient this is possibly a rib injury. We will give incentive spirometer. She'll be given pain medication for home. She is instructed to follow-up with her primary care physician for recheck in 1-2 days. Return parameters were discussed in detail. She verbalizes understanding and agrees with this plan. Case is discussed with my attending Dr. Renee. - Radiology Data Radiology results: report reviewed, image reviewed Two-view x-ray of the chest is obtained. Report is reviewed in its entirety. Impression by Dr. Rodriguez shows persistent anterior medial right middle lobe acute consolidation. No new infiltrate. Disposition Clinical Impression: Right-sided chest pain, Rib injury Disposition: HOME SELF-CARE Condition: Good Instructions (If sedation given, give patient instructions): Rib Fracture (ED) Additional Instructions: Apply ice over the area. Strict rest, no lifting at all. Use pillow to splint. Take medication and use pain patches as prescribed. Perform coughing and deep breathing exercises to prevent pneumonia. Follow-up with your primary care physician for recheck in 1-2 days. Return for any new, worsening, or concerning symptoms. Prescriptions: Lidocaine 5% Patch [Lidoderm] 1 patch TOPICAL DAILY #30 patch Ibuprofen [Motrin] 600 mg PO Q8HR PRN #30 tab PRN Reason: Pain Acetaminophen-Codeine 300-30mg [Tylenol #3] 1 tab PO Q6H PRN #12 tablet PRN Reason: Pain Is patient prescribed a controlled substance at d/c from ED?: No Referrals: Nikita Valdez MD [Primary Care Provider] - 1-2 days Time of Disposition: 12:37
[2021-02-02] MEDS ORDERED: LIDOCAINE 5% PATCH TOPICAL STA (12:33)
[2021-02-02] MEDS ORDERED: IBUPROFEN 600 MG STARTER PACK 4 TAB BTL PO STA (12:33)
[2021-02-02] MEDS ORDERED: ACET/COD 300 MG/30 MG STARTER PACK 6 TAB BTL PO STA (12:33)
[2021-02-02] MEDS ORDERED: KETOROLAC 15 MG/ML 1 ML VIAL IM STA (12:33)
[2021-02-02 13:50] VITALS: BP 124/66; PULSE 91
== END 2021-02-02 13:25 | disposition home or self-care (01) ==
LOC: EC 10:20
DX: S29.9XXA Unspecified injury of thorax, initial encounter (principal); E11.9 Type 2 diabetes mellitus without complications; I10 Essential (primary) hypertension; F12.90 Cannabis use, unspecified, uncomplicated; Z79.890 Hormone replacement therapy; Z79.52 Long term (current) use of systemic steroids; Z79.1 Long term (current) use of non-steroidal anti-inflammatories (NSAID); Z79.84 Long term (current) use of oral hypoglycemic drugs; Z79.899 Other long term (current) drug therapy; X50.1XXA Overexertion from prolonged static or awkward postures, initial encounter
CPT/HCPCS: 71046; 99283; 96372 ×2; J2270; J1885

== ENCOUNTER → 2022-12-02 | Outpatient (CLI) | payer OTHER, MEDICARE ==
--- NOTE | 2022-12-02 21:37 | XR ---
EXAMINATION TYPE: XR cervical spine comp DATE OF EXAM: 12/02/2022 4:20 PM INDICATION: Patient age:Female; 62 years old; Reason for study: S13.4XXA,S06.0X0A,V49.5XA; COMPARISON: None TECHNIQUE: The cervical spine was imaged in frontal, lateral, odontoid and bilateral oblique. FINDINGS: The osseous structures show normal alignment without evidence of an acute fracture. There are osteoph ytes noted throughout the cervical spine on the anterior and lateral aspects of the vertebral bodies. The intervertebral disk spaces are narrowed at multiple levels. Pedicles are intact. Soft tissues a re within normal limits. The odontoid appears intact. IMPRESSION: 1. No fracture or dislocation. 2. Mild degenerative disc disease changes of the cervical spine.
== END | disposition home or self-care (01) ==
LOC: RADXRMAIN 15:57
PROVIDERS: ATTEND Family Medicine
DX: S13.4XXA Sprain of ligaments of cervical spine, initial encounter (principal); M50.30 Other cervical disc degeneration, unspecified cervical region; S06.0X0A Concussion without loss of consciousness, initial encounter; V49.50XA Passenger injured in collision with unspecified motor vehicles in traffic accident, initial encounter
CPT/HCPCS: 72050

== ENCOUNTER 2024-02-04 10:17 | Observation (INO) | payer OTHER, MEDICARE ==
--- NOTE | 2024-02-04 10:47 | ED ---
General Adult HPI - General Chief complaint: Chest Pain Stated complaint: Chest Pain Time Seen by Provider: 02/04/24 10:27 Source: patient, RN notes reviewed, old records reviewed Mode of arrival: ambulatory Limitations: no limitations - History of Present Illness Initial comments: 63-year-old female history of diabetes presenting with left-sided chest discomfort. Patient describes the discomfort as a pressure. It has been present for the past 2 weeks. She does report recent loss of a close friend. No vomiting. No abdominal pain. No diaphoresis. - Related Data Home Medications Medication Instructions Recorded Confirmed Triamterene-Hctz 37.5-25Mg 1 tab PO DAILY 06/12/14 02/04/24 [Maxzide 37.5-25] Atorvastatin [Lipitor] 40 mg PO DAILY 02/02/21 02/04/24 metFORMIN HCL [Glucophage XR] 750 mg PO BID 02/02/21 02/04/24 Escitalopram Oxalate [Lexapro] 10 mg PO DAILY 02/04/24 02/04/24 Levothyroxine Sodium [Synthroid] 100 mcg PO DAILY 02/04/24 02/04/24 Allergies Allergy/AdvReac Type Severity Reaction Status Date / Time No Known Allergies Allergy Verified 02/04/24 12:16 Review of Systems ROS Statement: Those systems with pertinent positive or pertinent negative responses have been documented in the HPI. ROS Other: All systems not noted in ROS Statement are negative. Past Medical History Past Medical History: Diabetes Mellitus, Hypertension, Thyroid Disorder Additional Past Medical History / Comment(s): covid, SPURS ON RIGHT HEEL History of Any Multi-Drug Resistant Organisms: None Reported Past Surgical History: Orthopedic Surgery Additional Past Surgical History / Comment(s): BUNIONS BILATERAL IN 2014. Past Anesthesia/Blood Transfusion Reactions: No Reported Reaction Past Psychological History: No Psychological Hx Reported Smoking Status: Never smoker Past Alcohol Use History: Rare Past Drug Use History: Marijuana - Past Family History Father Family Medical History: Cancer General Exam Limitations: no limitations General appearance: alert, in no apparent distress Head exam: Present: atraumatic, normocephalic Eye exam: Present: normal appearance, PERRL ENT exam: Present: normal exam Neck exam: Present: normal inspection. Absent: tenderness, meningismus Respiratory exam: Present: normal lung sounds bilaterally. Absent: respiratory distress, wheezes Cardiovascular Exam: Present: regular rate, normal rhythm GI/Abdominal exam: Present: soft. Absent: distended, tenderness, guarding Extremities exam: Present: normal inspection, normal capillary refill. Absent: pedal edema Neurological exam: Present: alert, altered Psychiatric exam: Present: normal affect, normal mood Skin exam: Present: warm, dry, intact Course Vital Signs 02/04/24 02/04/24 02/04/24 10:23 11:04 11:30 Temperature 98.3 F 98.2 F Pulse Rate 100 96 Pulse Rate [ 90 Welfare Investigator ] Respiratory 20 19 Rate Blood Pressure 129/79 126/73 O2 Sat by Pulse 99 100 Oximetry 02/04/24 12:59 Temperature Pulse Rate 84 Pulse Rate [ Welfare Investigator ] Respiratory 17 Rate Blood Pressure 122/73 O2 Sat by Pulse 98 Oximetry Medical Decision Making - Medical Decision Making Was pt. sent in by a medical professional or institution (KEEGAN Moore, EMBEDDED SOFTWARE TEST ENGINEER, urgent care, hospital, or shelter...) When possible be specific @ -No Did you speak to anyone other than the patient for history (EMS, parent, family, police, friend...)? What history was obtained from this source @ -No Did you review nursing and triage notes (agree or disagree)? Why? @ -I reviewed and agree with nursing and triage notes Were old charts reviewed (outside hosp., previous admission, EMS record, old EKG, old radiological studies, urgent care reports/EKG's, shelter records)? Report findings @ -No old charts were reviewed Differential Chest Pain: Stable Angina, Unstable Angina, STEMI, NSTEMI Aortic Dissection, Pneumothorax, Musculoskeletal, Esophageal Spasm GERD, Cholecystitis, Pancreatitis, Zoster, this is not meant to be an all-inclusive list. EKG interpreted by me (3pts min.). @Sinus rhythm rate of 89, SD interval 132, QRS duration 75, QTc [address] segment elevation X-rays interpreted by me (1pt min.). @ -Chest x-ray negative for acute cardiopulmonary findings. CT interpreted by me (1pt min.). @ -None done U/S interpreted by me (1pt. min.). @ -None done What testing was considered but not performed or refused? (CT, X-rays, U/S, labs)? Why? @ -None What meds were considered but not given or refused? Why? @ -None Did you discuss the management of the patient with other professionals (professionals i.e. , PA, EMBEDDED SOFTWARE TEST ENGINEER, lab, RT, psych nurse, social work supervisor, rock drill operator, teacher, professional security officer, dependency case manager)? Give summary @ -Dr. Valdez Was smoking cessation discussed for >3mins.? @ -No Was critical care preformed (if so, how long)? @ -No Were there social determinants of health that impacted care today? How? (Homelessness, low income, unemployed, alcoholism, drug addiction, transportation, low edu. Level, literacy, decrease access to med. care, intermediate, rehab)? @ -No Was there de-escalation of care discussed even if they declined (Discuss DNR or withdrawal of care, Hospice)? DNR status @ -No What co-morbidities impacted this encounter? (DM, HTN, Smoking, COPD, CAD, Can cer, CVA, ARF, Chemo, Hep., AIDS, mental health diagnosis, sleep apnea, morbid obesity)? @ -None Was patient admitted / discharged? Hospital course, mention meds given and route, prescriptions, significant lab abnormalities, going to OR and other pertinent info. @63-year-old female with chest tightness. Symptoms present for the past 2 weeks. Patient does admit to being stressed over recent loss however this occurred several days ago when she was experiencing pain prior to this. EKG is sinus rhythm. Chest x-ray is clear. She has an anemia of 7.7 without any recent bleeding issues, no melena. Initial troponin is negative. Given the patient's risk factors she will be observed for serial cardiac enzymes, telemetry, cardiology consultation Undiagnosed new problem with uncertain prognosis? @ -No Drug Therapy requiring intensive monitoring for toxicity (Heparin, Nitro, Insulin, Cardizem)? @ -No Were any procedures done? @ -No Diagnosis/symptom? @Chest pain rule out Acute, or Chronic, or Acute on Chronic? @Acute Uncomplicated (without systemic symptoms) or Complicated (systemic symptoms)? @ -Default Side effects of treatment? @ -No Exacerbation, Progression, or Severe Exacerbation? @ -No Poses a threat to life or bodily function? How? (Chest pain, [place], [place], pneumonia, PE, COPD, DKA, ARF, appy, cholecystitis, CVA, Diverticulitis, Homicidal, Suicidal, threat to staff... and all critical care pts) @ -Yes, ACS will - Lab Data Result diagrams: 02/04/24 11:04 02/04/24 11:04 Lab Results 02/04/24 02/04/24 02/04/24 Range/Units 11:04 11:04 11:04 WBC 3.7 L (3.8-10.6) k/uL RBC 1.88 L (3.80-5.40) m/uL Hgb 7.7 L (11.4-16.0) gm/dL Hct 22.0 L (34.0-46.0) % MCV 117.0 H (80.0-100.0) fL MCH 41.1 H (25.0-35.0) pg MCHC 35.1 (31.0-37.0) g/dL RDW 18.4 H (11.5-15.5) % Plt Count 244 (150-450) k/uL MPV 8.2 Neutrophils % 63 % Lymphocytes % 33 % Monocytes % 1 % Eosinophils % 2 % Basophils % 0 % Neutrophils # 2.3 (1.3-7.7) k/uL Lymphocytes # 1.2 (1.0-4.8) k/uL Monocytes # 0.0 (0-1.0) k/uL Eosinophils # 0.1 (0-0.7) k/uL Basophils # 0.0 (0-0.2) k/uL Manual Slide Review Performed Anisocytosis Slight Macrocytosis Marked A PT 11.2 (10.0-12.5) sec INR 1.0 (<1.2) APTT 22.4 (22.0-30.0) sec Sodium 136 L (137-145) mmol/L Potassium 3.6 (3.5-5.1) mmol/L Chloride 108 H (98-107) mmol/L Carbon Dioxide 28 (22-30) mmol/L Anion Gap 0 mmol/L BUN 11 (7-17) mg/dL Creatinine 0.59 (0.52-1.04) mg/dL Est GFR (CKD-EPI)AfAm >90 (>60 ml/min/1.73 sqM) Est GFR (CKD-EPI)NonAf >90 (>60 ml/min/1.73 sqM) Glucose 133 H (74-99) mg/dL POC Glucose (mg/dL) (70-110) mg/dL POC Glu Admin Assistant ID Calcium 9.1 (8.4-10.2) mg/dL Magnesium 1.5 L (1.6-2.3) mg/dL Total Bilirubin 1.3 (0.2-1.3) mg/dL AST 25 (14-36) U/L ALT 20 (4-34) U/L Alkaline Phosphatase 66 (38-126) U/L Troponin I (0.000-0.034) ng/mL Total Protein 6.5 (6.3-8.2) g/dL Albumin 4.0 (3.5-5.0) g/dL Influenza Type A (PCR) (Not Detectd) Influenza Type B (PCR) (Not Detectd) RSV (PCR) (Not Detectd) SARS-CoV-2 (PCR) (Not Detectd) 02/04/24 02/04/24 02/04/24 Range/Units 11:04 11:28 13:11 WBC (3.8-10.6) k/uL RBC (3.80-5.40) m/uL Hgb (11.4-16.0) gm/dL Hct (34.0-46.0) % MCV (80.0-100.0) fL MCH (25.0-35.0) pg MCHC (31.0-37.0) g/dL RDW (11.5-15.5) % Plt Count (150-450) k/uL MPV Neutrophils % % Lymphocytes % % Monocytes % % Eosinophils % % Basophils % % Neutrophils # (1.3-7.7) k/uL Lymphocytes # (1.0-4.8) k/uL Monocytes # (0-1.0) k/uL Eosinophils # (0-0.7) k/uL Basophils # (0-0.2) k/uL Manual Slide Review Anisocytosis Macrocytosis PT (10.0-12.5) sec INR (<1.2) APTT (22.0-30.0) sec Sodium (137-145) mmol/L Potassium (3.5-5.1) mmol/L Chloride (98-107) mmol/L Carbon Dioxide (22-30) mmol/L Anion Gap mmol/L BUN (7-17) mg/dL Creatinine (0.52-1.04) mg/dL Est GFR (CKD-EPI)AfAm (>60 ml/min/1.73 sqM) Est GFR (CKD-EPI)NonAf (>60 ml/min/1.73 sqM) Glucose (74-99) mg/dL POC Glucose (mg/dL) 112 H (70-110) mg/dL POC Glu Admin Assistant ID Hossein Ceron Calcium (8.4-10.2) mg/dL Magnesium (1.6-2.3) mg/dL Total Bilirubin (0.2-1.3) mg/dL AST (14-36) U/L ALT (4-34) U/L Alkaline Phosphatase (38-126) U/L Troponin I <0.012 (0.000-0.034) ng/mL Total Protein (6.3-8.2) g/dL Albumin (3.5-5.0) g/dL Influenza Type A (PCR) Not Detected (Not Detectd) Influenza Type B (PCR) Not Detected (Not Detectd) RSV (PCR) Not Detected (Not Detectd) SARS-CoV-2 (PCR) Not Detected (Not Detectd) Disposition Clinical Impression: Chest pain Disposition: ADMITTED IP TO THIS HOSP Condition: Stable Is patient prescribed a controlled substance at d/c from ED?: No Referrals: Isaías Schaefer Jr, DO [Primary Care Provider] - 1-2 days Time of Disposition: 13:57
[2024-02-04 11:45] LABS: Partial Thromboplastin Time 22.4 sec (22.0-30.0); Prothrombin Time 11.2 sec (10.0-12.5)
[2024-02-04 11:50] LABS: ALT 20 U/L (4-34); AST 25 U/L (14-36); African American GFR (CKD) >90 (>60 ml/min/1.73 sqM); Alkaline Phosphatase 66 U/L (38-126); Anion Gap 0 mmol/L; Blood Urea Nitrogen 11 mg/dL (7-17); Calcium 9.1 mg/dL (8.4-10.2); Carbon Dioxide 28 mmol/L (22-30); Chloride 108 mmol/L (98-107); Glucose 133 mg/dL (74-99); Magnesium 1.5 mg/dL (1.6-2.3); Non-African American GFR(CKD) >90 (>60 ml/min/1.73 sqM); Potassium 3.6 mmol/L (3.5-5.1); Sodium 136 mmol/L (137-145); Total Bilirubin 1.3 mg/dL (0.2-1.3); Total Protein 6.5 g/dL (6.3-8.2)
[2024-02-04 12:00] LABS: Anisocytosis Slight; Basophils % (A) 0 %; Eosinophils # (A) 0.1 k/uL (0-0.7); Eosinophils % (A) 2 %; HGB 7.7 gm/dL (11.4-16.0); Lymphocytes # (A) 1.2 k/uL (1.0-4.8); Lymphocytes % (A) 33 %; MCH 41.1 pg (25.0-35.0); MCHC 35.1 g/dL (31.0-37.0); Macrocytosis Marked; Mean Platelet Volume 8.2; Monocytes % (A) 1 %; Neutrophils # (A) 2.3 k/uL (1.3-7.7); Neutrophils % (A) 63 %; Platelet Count 244 k/uL (150-450); RBC 1.88 m/uL (3.80-5.40); RDW 18.4 % (11.5-15.5); WBC 3.7 k/uL (3.8-10.6)
--- NOTE | 2024-02-04 12:59 | XR ---
EXAMINATION TYPE: XR chest 2V DATE OF EXAM: 02/04/2024 COMPARISON: 02/02/2021 HISTORY: Shortness of breath TECHNIQUE: Frontal and lateral views of the chest are obtained. FINDINGS: Scattered senescent parenchymal changes noted. Hyperinflation compatible with COPD. No evidence for infiltrate. No evidence for atelectasis. Heart size is stable. Mediastinal structures are stable and grossly unremarkable. No evidence for hilar prominence. Degenerative changes dorsal spine. IMPRESSION: 1. No evidence for acute pulmonary disease. [facility], , 02/04/2024 12:56 PM
[2024-02-04 13:12] LABS: Glucose,Whole Blood 112 mg/dL (70-110)
[2024-02-04] MEDS: ASPIRIN 325 MG TAB PO STA (13:27)
[2024-02-04] MEDS: HYDROmorphone 0.5 MG/0.5 ML SYRINGE IVP STA (13:27)
[2024-02-04] MEDS: SODIUM CHLORIDE 0.9% 1,000 ML IV SCH (13:43)
[2024-02-04] MEDS: ONDANSETRON 4 MG/2 ML VIAL IVP STA (13:44)
[2024-02-04] MEDS ORDERED: ONDANSETRON 4 MG/2 ML VIAL IVP PRN (13:48)
[2024-02-04] MEDS ORDERED: NALOXONE 0.4 MG/ML 1 ML VIAL IV PRN (13:48)
[2024-02-04] MEDS ORDERED: DEXTROSE 50% SYRINGE 50 ML IVP PRN ×2 (15:58)
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
[2024-02-04 16:38] LABS: Glucose,Whole Blood 168 mg/dL (70-110)
[2024-02-04] MEDS: ATORVASTATIN 40 MG TAB PO SCH (16:58)
[2024-02-04] MEDS: ESCITALOPRAM 10 MG TAB PO SCH (16:58)
[2024-02-04] MEDS: INSULIN ASPART (NovoLOG) 100 UNIT/ML VIAL SQ SCH (17:00)
[2024-02-04] MEDS: ACETAMINOPHEN TAB 325 MG TAB PO PRN (18:52)
[2024-02-04 20:03] LABS: Glucose,Whole Blood 122 mg/dL (70-110)
[2024-02-05 02:20] LABS: Reticulocyte % 1.31 % (0.10-1.80)
[2024-02-05 03:03] LABS: % Iron Saturation 36.36 (12.00-45.00); Iron 92 UG/DL (50-170); Total Iron Binding Capacity 253 UG/DL (228-460)
[2024-02-05 03:44] LABS: Vitamin B12 <150.0 pg/mL (200.0-944.0)
[2024-02-05 06:02] LABS: Glucose,Whole Blood 145 mg/dL (70-110)
[2024-02-05] MEDS: LEVOTHYROXINE 100 MCG TAB PO SCH (06:22)
[2024-02-05 10:00] LABS: BUN/Creat Ratio 17.33 Ratio (12.00-20.00); Blood Urea Nitrogen 10.4 mg/dL (9.0-27.0); Carbon Dioxide 25.1 mmol/L (21.6-31.8); Chloride 112 mmol/L (96-109); Glucose 121 mg/dL (70-110); Sodium 144 mmol/L (135-145)
[2024-02-05 10:01] LABS: ALT 17 U/L (8-44); AST 19 U/L (13-35); Albumin 3.7 g/dL (3.8-4.9); Albumin/Globulin Ratio 1.95 Ratio (1.60-3.17); Alkaline Phosphatase 60 U/L (41-126); Calcium 8.4 mg/dL (8.7-10.3); Globulin 1.9 g/dL (1.6-3.3); Total Bilirubin 0.6 mg/dL (0.3-1.2); Total Protein 5.6 g/dL (6.2-8.2)
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
[2024-02-05] MEDS ORDERED: Magnesium Replacement Protocol 1 EACH MISC MISCELLANE PRN (10:36)
[2024-02-05 11:25] LABS: Basophils # (A) 0 X 10*3/uL (0.00-0.10); Basophils % (A) 0 %; Eosinophils # (A) 0.22 X 10*3/uL (0.04-0.35); Eosinophils % (A) 6.7 %; HCT 18.4 % (37.2-46.3); HGB 6.5 g/dL (12.0-15.0); Lymphocytes # (A) 1.49 X 10*3/uL (0.90-5.00); Lymphocytes % (A) 45.6 %; MCH 41.1 pg (27.0-32.0); MCHC 35.3 g/dL (32.0-37.0); MCV 116.5 FL (80.0-97.0); Macrocytosis (M) 3+; Mean Platelet Volume 10.2 FL (9.5-12.2); Monocytes % (A) 3.1 %; NRBC Per 100 WBC 0 X 10*3/uL (0.00-0.01); Neutrophils # (A) 1.45 X 10*3/uL (1.80-7.70); Neutrophils % (A) 44.3 %; Platelet Count 185 X 10*3/uL (140-440); RBC 1.58 X 10*6/uL (4.10-5.20); RDW 15.9 % (11.5-14.5); WBC 3.27 X 10*3/uL (4.50-10.00)
[2024-02-05] MEDS: CYANOCOBALAMIN 1,000 MCG/ML 1 ML VIAL IM ONE (11:37)
[2024-02-05] MEDS: MAGNESIUM SULFATE-D5W PMX 1 GM in DEXTROSE/WATER 1 100ML.BAG IVPB SCH (11:55)
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
[2024-02-05 12:08] LABS: Glucose,Whole Blood 174 mg/dL (70-110)
--- NOTE | 2024-02-05 12:53 | CT ---
CTA CHEST EXAMINATION TYPE: CT angio chest DATE OF EXAM: 02/05/2024 INDICATION: Elevated dimer, CP CT DLP: 230.50 mGycm, Automated exposure control for dose reduction was used. CONTRAST: Patient injected with 100 mL of Isovue 370. COMPARISON: None TECHNIQUE: CT of the chest is performed on a spiral scan at 2 mm thick sections. Study is performed with intravenous contrast timed for evaluation for pulmonary embolism. This will limit additional po rtions of the evaluation. 3-D MIP images reconstructed by the technologist are reviewed on the compu ter in the coronal and sagittal planes. FINDINGS: No persistent filling defects are evident to suggest an acute pulmonary embolism. No mediastinal or hilar adenopathy enlarged by CT criteria is evident. The ascending aorta diameter at the level of the main pulmonary artery is 3.0 cm. The main pulmonary artery diameter at the bifurcation is 2.3 cm. Lung windows are clear. Limited CT sections were through the upper abdomen. Upper abdomen appears unremarkable. IMPRESSION: 1. No acute pulmonary embolism. 2. No acute pulmonary process. [facility], Workstation: [facility], 02/05/2024 12:51 PM
--- NOTE | 2024-02-05 15:07 | P.CONS ---
History of Present Illness - Reason for Consult Consult date: 02/05/24 Anemia - Chief Complaint Fatigue, headaches - History of Present Illness Ms. Cali is a 63-year-old woman with a past medical history significant for hypothyroidism and diabetes mellitus type 2 on metformin for whom we are consulted regarding macrocytic anemia secondary to vitamin B12 deficiency. She presented on 02/04/2024 with progressive headaches, fatigue, chest discomfort, and orthostatic dizziness. She was hemodynamically stable and afebrile. Hemoglobin on admission was 7.7 with MCV 117. WBC was 3.7 with ANC of 2.3 and platelets 244. CMP revealed no acute metabolic abnormalities with troponin negative x 3. Additional anemia workup on admission revealed vitamin B12 less than 150 with normal folic acid and ferritin/iron saturation. Repeat CBC today noted hemoglobin 6.5 and has 1 unit packed red blood cells ordered. Cardiology has been consulted and ordered echo which was done today with interpretation pending. CTA of the chest revealed no acute process and no evidence of pulmonary embolism. Currently, she is feeling improved compared to admission. She denies any kirsten na, hematochezia, or bright blood per rectum. She denies any peripheral neuropathy in a stocking and glove distribution. She does take metformin daily has been taking this medication for years for diabetes mellitus type 2. She denies any family history of autoimmune diseases. She does not take any blood thinners. Review of Systems 14 point review of systems was conducted pertinent positives and negatives as noted per HPI Past Medical History Past Medical History: Diabetes Mellitus, Hypertension, Thyroid Disorder Additional Past Medical History / Comment(s): covid, SPURS ON RIGHT HEEL resolved without surgery History of Any Multi-Drug Resistant Organisms: None Reported Past Surgical History: Orthopedic Surgery Additional Past Surgical History / Comment(s): BUNIONS BILATERAL IN 2014, LEFT BUNION REDONE 2023 Past Anesthesia/Blood Transfusion Reactions: No Reported Reaction Past Psychological History: No Psychological Hx Reported Smoking Status: Never smoker Past Alcohol Use History: Rare Past Drug Use History: Marijuana - Past Family History Father Family Medical History: Cancer Medications and Allergies Home Medications Medication Instructions Recorded Confirmed Type Triamterene-Hctz 37.5-25Mg 1 tab PO DAILY 06/12/14 02/04/24 History [Maxzide 37.5-25] Atorvastatin [Lipitor] 40 mg PO DAILY 02/02/21 02/04/24 History metFORMIN HCL [Glucophage XR] 750 mg PO BID 02/02/21 02/04/24 History Escitalopram Oxalate [Lexapro] 10 mg PO DAILY 02/04/24 02/04/24 History Levothyroxine Sodium [Synthroid] 100 mcg PO DAILY 02/04/24 02/04/24 History Allergies Allergy/AdvReac Type Severity Reaction Status Date / Time No Known Allergies Allergy Verified 02/04/24 12:16 Physical Exam Vitals: Vital Signs Temp Pulse Pulse Resp BP BP BP 02/05/24 14:03 97.2 F L 82 16 128/68 02/05/24 14:00 16 02/05/24 08:00 15 02/05/24 07:00 98.4 F 87 15 126/76 02/05/24 01:57 98.5 F 104 H 20 138/82 02/05/24 01:04 87 16 02/04/24 21:21 87 16 02/04/24 18:35 98.0 F 87 16 127/69 02/04/24 18:00 99.2 F 84 17 128/72 02/04/24 16:45 79 16 123/69 02/04/24 15:25 87 17 130/65 Pulse Ox 02/05/24 14:03 99 02/05/24 14:00 02/05/24 08:00 02/05/24 07:00 100 02/05/24 01:57 99 02/05/24 01:04 02/04/24 21:21 02/04/24 18:35 100 02/04/24 18:00 99 02/04/24 16:45 98 02/04/24 15:25 99 Intake and Output 02/04/24 02/05/24 02/05/24 22:59 06:59 14:59 Intake Total 0 118 Balance 0 118 Intake: Oral 0 118 Other: Voiding Method Toilet Toilet Toilet # Voids 1 2 3 Weight 63.049 kg - Constitutional General appearance: cooperative, no acute distress - EENT Eyes: EOMI - Respiratory Nonlabored breathing - Cardiovascular Warm and well-perfused - Gastrointestinal General gastrointestinal: no distended, soft - Integumentary Integumentary: pale - Neurologic Neurologic: CNII-XII intact Results CBC & Chem 7: 02/05/24 03:20 02/05/24 03:15 Labs: Abnormal Lab Results - Last 24 Hours (Table) 02/04/24 02/04/24 02/04/24 Range/Units 16:37 17:40 20:02 WBC (4.50-10.00) X 10*3/uL RBC (4.10-5.20) X 10*6/uL Hgb (12.0-15.0) g/dL Hct (37.2-46.3) % MCV (80.0-97.0) FL MCH (27.0-32.0) pg RDW (11.5-14.5) % Neutrophils # (1.80-7.70) X 10*3/uL Monocytes # (0.20-1.00) X 10*3/uL Macrocytosis (manual) D-Dimer (<0.60) mg/L FEU Chloride (96-109) mmol/L Glucose (70-110) mg/dL POC Glucose (mg/dL) 168 H 122 H (70-110) mg/dL Hemoglobin A1c (<=6.0) % Calcium (8.7-10.3) mg/dL Transferrin 181.0 L (204.0-354.0) mg/dL Total Protein (6.2-8.2) g/dL Albumin (3.8-4.9) g/dL Vitamin B12 <150.0 L (200.0-944.0) pg/mL 02/05/24 02/05/24 02/05/24 Range/Units 03:15 03:20 03:20 WBC 3.27 L (4.50-10.00) X 10*3/uL RBC 1.58 L (4.10-5.20) X 10*6/uL Hgb 6.5 A* (12.0-15.0) g/dL Hct 18.4 A* (37.2-46.3) % MCV 116.5 H (80.0-97.0) FL MCH 41.1 H (27.0-32.0) pg RDW 15.9 H (11.5-14.5) % Neutrophils # 1.45 L (1.80-7.70) X 10*3/uL Monocytes # 0.10 L (0.20-1.00) X 10*3/uL Macrocytosis (manual) 3+ A D-Dimer (<0.60) mg/L FEU Chloride 112 H (96-109) mmol/L Glucose 121 H (70-110) mg/dL POC Glucose (mg/dL) (70-110) mg/dL Hemoglobin A1c 6.4 H (<=6.0) % Calcium 8.4 L (8.7-10.3) mg/dL Transferrin (204.0-354.0) mg/dL Total Protein 5.6 L (6.2-8.2) g/dL Albumin 3.7 L (3.8-4.9) g/dL Vitamin B12 (200.0-944.0) pg/mL 02/05/24 02/05/24 02/05/24 Range/Units 06:01 10:45 12:06 WBC (4.50-10.00) X 10*3/uL RBC (4.10-5.20) X 10*6/uL Hgb (12.0-15.0) g/dL Hct (37.2-46.3) % MCV (80.0-97.0) FL MCH (27.0-32.0) pg RDW (11.5-14.5) % Neutrophils # (1.80-7.70) X 10*3/uL Monocytes # (0.20-1.00) X 10*3/uL Macrocytosis (manual) D-Dimer 1.24 H (<0.60) mg/L FEU Chloride (96-109) mmol/L Glucose (70-110) mg/dL POC Glucose (mg/dL) 145 H 174 H (70-110) mg/dL Hemoglobin A1c (<=6.0) % Calcium (8.7-10.3) mg/dL Transferrin (204.0-354.0) mg/dL Total Protein (6.2-8.2) g/dL Albumin (3.8-4.9) g/dL Vitamin B12 (200.0-944.0) pg/mL Assessment and Plan (1) Drug-induced vitamin B12 deficiency anemia Current Visit: Yes Status: Acute Code(s): D51.9 - VITAMIN B12 DEFICIENCY ANEMIA, UNSPECIFIED; T50.905A - ADVERSE EFFECT OF UNSP DRUG/MEDS/BIOL SUBST, INIT SNOMED Code(s): 684294214 Plan: #Drug-induced vitamin B12 deficiency with macrocytic anemia -Presented with signs and symptoms of anemia including chest pain, fatigue, orthostatic dizziness, and headache -Labs were consistent with macrocytic anemia secondary to vitamin B12 deficiency with normal folic acid and iron -She likely has vitamin B12 deficiency secondary to impaired absorption as a side effect of metformin -1 dose of intramuscular vitamin B12 administered today along with 1 unit of packed red blood cells ordered -Recommended daily intramuscular vitamin B12 1000 mcg while she is inpatient to be transition to 2000 mcg daily by mouth on discharge -TSH ordered by the primary team -Intrinsic factor and gastric parietal cell antibodies have been ordered to rule out pernicious anemia -We will arrange for follow-up outpatient close to the time of discharge Germaine Ventura MD
--- NOTE | 2024-02-05 15:29 | CA ---
Transthoracic Echo Report Name: Francisca Cali Age: 63 Gender: F : 1960 Exam Date: 02/05/2024 13:17 Exam Location: [facility] Ht (in): 61 Wt (lb): 139 Ordering Physician: Nikita Valdez MD Attending/Referring Phys: Fundraising Specialist Vale Blanchard RDCS Procedure CPT: Indications: Chest Pain Cardiac Hx: Technical Quality: Good Contrast 1: Total Dose (mL): Contrast 2: Total Dose (mL): MEASUREMENTS (Male / Female) Normal Values 2D ECHO LV Diastolic Diameter PLAX 5.2 cm 4.2 - 5.9 / 3.9 - 5.3 cm LV Systolic Diameter PLAX 3.3 cm IVS Diastolic Thickness 1.3 cm 0.6 - 1.0 / 0.6 - 0.9 cm LVPW Diastolic Thickness 1.3 cm 0.6 - 1.0 / 0.6 - 0.9 cm LV Relative Wall Thickness 0.5 RV Internal Dim ED PLAX 3.1 cm LA Systolic Diameter LX 4.1 cm 3.0 - 4.0 / 2.7 - 3.8 cm LV Diastolic Volume MOD BP 71.6 cm??? 67 - 155 / 56 - 104 cm??? LV Systolic Volume MOD BP 27.7 cm??? 22 - 58 / 19 - 49 cm??? LV Ejection Fraction MOD BP 61.3 % >= 55 % LV Cardiac Index MOD BP 2269.5 cm???/min???m??? LV Diastolic Volume MOD 4C 70.1 cm??? LV Systolic Volume MOD 4C 31.6 cm??? LV Ejection Fraction MOD 4C 55.0 % LV Cardiac Index MOD 4C 1992.0 cm???/min???m??? LV Diastolic Length 4C 7.3 cm LV Systolic Length 4C 6.4 cm LV Diastolic Volume MOD 2C 66.4 cm??? LV Systolic Volume MOD 2C 24.5 cm??? LV Ejection Fraction MOD 2C 63.2 % LV Cardiac Index MOD 2C 2169.5 cm???/min???m??? LV Diastolic Length 2C 8.1 cm LV Systolic Length 2C 6.6 cm LA Volume 45.5 cm??? 18 - 58 / 22 - 52 cm??? LA Volume Index 27.3 cm???/m??? 16 - 28 cm???/m??? M-MODE Aortic Root Diameter MM 3.0 cm AV Cusp Separation MM 2.0 cm DOPPLER AV Peak Velocity 133.3 cm/s AV Peak Gradient 7.1 mmHg MV Area PHT 4.2 cm??? Mitral E Point Velocity 118.0 cm/s Mitral A Point Velocity 132.4 cm/s Mitral E to A Ratio 0.9 MV Deceleration Time 182.4 ms TR Peak Velocity 217.3 cm/s TR Peak Gradient 18.9 mmHg Right Ventricular Systolic Press 23.2 mmHg FINDINGS Left Ventricle Left ventricular ejection fraction is estimated at 55-60 %. Left ventricular cavity size normal. Mild concentric left ventricular hypertrophy. Normal left ventricular wall motion. Right Ventricle Normal right ventricular size. Right ventricular systolic pressure within normal limits. Right Atrium Normal right atrial size. No right atrial thrombus or mass seen. Left Atrium Mildly increased left atrial diameter. No left atrial thrombus or mass present. Mitral Valve Mitral valve thickened. No evidence for mitral valve prolapse. No mitral stenosis. Moderate mitral regurgitation. Aortic Valve Trileaflet aortic valve. No aortic stenosis. No aortic regurgitation. Tricuspid Valve Structurally normal tricuspid valve. Mild tricuspid regurgitation. Pulmonic Valve Structurally normal pulmonic valve. No pulmonic regurgitation. Pericardium No pericardial or pleural effusion. Aorta Normal size aortic root and proximal ascending aorta. CONCLUSIONS Left ventricular ejection fraction 55-60% Mildly increased left ventricular wall thickness Moderate mitral regurgitation Mild tricuspid regurgitation RVSP 23 Previewed by: Dr. Rudolph Donnelly DO (Electronically Signed) Final Date: 05 February 2024 15:29
[2024-02-05 17:10] LABS: Glucose,Whole Blood 194 mg/dL (70-110)
[2024-02-05 20:28] LABS: Glucose,Whole Blood 116 mg/dL (70-110)
[2024-02-06 05:47] LABS: Glucose,Whole Blood 137 mg/dL (70-110)
[2024-02-06 07:15] VITALS: BP 110/45; PULSE 81; RESP 15; TEMP 98
[2024-02-06] MEDS: CYANOCOBALAMIN 1,000 MCG/ML 1 ML VIAL IM SCH (09:36)
[2024-02-06 10:41] LABS: Basophils # (A) 0 X 10*3/uL (0.00-0.10); Basophils % (A) 0 %; Elliptocytes 2+; Eosinophils # (A) 0.29 X 10*3/uL (0.04-0.35); Eosinophils % (A) 7.8 %; HCT 21.4 % (37.2-46.3); HGB 7.6 g/dL (12.0-15.0); Lymphocytes # (A) 1.62 X 10*3/uL (0.90-5.00); Lymphocytes % (A) 43.4 %; MCH 39.2 pg (27.0-32.0); MCHC 35.5 g/dL (32.0-37.0); MCV 110.3 FL (80.0-97.0); Macrocytosis (M) 3+; Mean Platelet Volume 10.4 FL (9.5-12.2); Monocytes # (A) 0.11 X 10*3/uL (0.20-1.00); Monocytes % (A) 2.9 %; NRBC Per 100 WBC 0 X 10*3/uL (0.00-0.01); Neutrophils # (A) 1.69 X 10*3/uL (1.80-7.70); Neutrophils % (A) 45.4 %; Platelet Count 209 X 10*3/uL (140-440); RBC 1.94 X 10*6/uL (4.10-5.20); RDW 20.7 % (11.5-14.5); WBC 3.73 X 10*3/uL (4.50-10.00)
[2024-02-06 11:23] LABS: Magnesium 1.8 mg/dL (1.5-2.4)
[2024-02-06 11:43] LABS: BUN/Creat Ratio 11.67 Ratio (12.00-20.00); Chloride 110 mmol/L (96-109); Glucose 122 mg/dL (70-110); Potassium 3.5 mmol/L (3.5-5.5); Sodium 141 mmol/L (135-145)
[2024-02-06 11:44] LABS: ALT 14 U/L (8-44); AST 21 U/L (13-35); Albumin 3.8 g/dL (3.8-4.9); Albumin/Globulin Ratio 1.81 Ratio (1.60-3.17); Alkaline Phosphatase 61 U/L (41-126); Calcium 8.5 mg/dL (8.7-10.3); Carbon Dioxide 20.2 mmol/L (21.6-31.8); Globulin 2.1 g/dL (1.6-3.3); Total Bilirubin 0.9 mg/dL (0.3-1.2); Total Protein 5.9 g/dL (6.2-8.2)
[2024-02-06] MEDS: CYANOCOBALAMIN 1,000 MCG/ML 1 ML VIAL IM ONE (12:00)
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
--- NOTE | 2024-02-06 12:18 | P.PN ---
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 She denies having a stress test or cardiac catheterization in the past. She has a past medical history of hypertension, hyperlipidemia, hypothyroidism. Patient gives history that she started with runny nose headache and sweats along with chest pain and headache. Symptoms started about 2 weeks ago but worsened after she had a friend in her home which time she tried to give CPR and friend was not successfully resuscitated. Patient also gives history of weight loss of 70 pounds due to medications and exercise monitored by her PCP. Patient is noted to have a low hemoglobin of 7.7 which is being evaluated. Blood pressure 126/76, heart rate 87, pulse ox 100% on room air. CTA of the chest, echocardiogram and blood transfusion are pending. EKG: Sinus rhythm Chest x-ray: No acute process Laboratory studies: WBC 3.2, hemoglobin 6.5, platelet count 185. D-dimer 1.24. Sodium 144, potassium 4, creatinine 0.6. Troponin negative x 3. A1c 6.4. Influenza A, influenza B, RSV, COVID-19 not detected. Home cardiac medications: Atorvastatin 40 mg daily, Maxide 37.5-25 mg daily, al so on levothyroxine 100 mcg daily. 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 Patient denies having any chest pain at this time. Echocardiogram reveals EF of 55 to 60%, moderate MR, mild TR, RVSP 23. CTA of the chest no acute pulmonary embolus no acute process. Physical examination: Gen: This is a 63-year-old female in no acute distress VS: reviewed HEENT: Head is atraumatic, normocephalic. Pupils equal, round. Sclerae is anicteric. NECK: Supple. No JVD. LUNGS: Clear to auscultation. No wheezes or rhonchi. No intercostal retractions. HEART: Regular rate and rhythm. No murmur. Tenderness to left chest wall ABDOMEN: Soft No tenderness. EXTREMITIES: No pedal edema. No calf tenderness. NEUROLOGICAL: Patient is awake, alert and oriented x3. Assessment: Atypical chest pain, acute coronary syndrome ruled out Chest pain could be related to recent CPR that she administered to a friend Elevated D-dimer rule out PE Significant anemia Leukocytopenia Weight loss of 70 pounds, intentional Hypertension Hyperlipidemia Hypothyroidism Plan: Continue patient's home cardiac medications Patient is cleared for discharge and patient may follow-up in the office for outpatient stress testing Nurse practitioner note has been reviewed, I agree with documented findings and plan of care. Patient was seen and examined. Objective - Vital Signs Vital signs: Vital Signs Temp 98.0 F 02/06/24 07:00 Pulse 81 02/06/24 07:00 Resp 15 02/06/24 07:00 BP 110/45 02/06/24 07:00 Pulse Ox 98 02/06/24 07:00 FiO2 Intake & Output 02/05/24 02/06/24 02/06/24 18:59 06:59 18:59 Intake Total 381 118 Balance 381 118 Intake: Oral 118 118 Blood Product 263 Rc Pheresis 2 As3 Unit 263 [id number] Other: Voiding Method Toilet Toilet # Voids 3 2 - Labs CBC & Chem 7: 02/06/24 04:05 02/06/24 04:05 Labs: Abnormal Lab Results - Last 24 Hours (Table) 02/05/24 02/05/24 02/05/24 Range/Units 03:15 03:20 10:45 WBC 3.27 L (4.50-10.00) X 10*3/uL RBC 1.58 L (4.10-5.20) X 10*6/uL Hgb 6.5 A* (12.0-15.0) g/dL Hct 18.4 A* (37.2-46.3) % MCV 116.5 H (80.0-97.0) FL MCH 41.1 H (27.0-32.0) pg RDW 15.9 H (11.5-14.5) % Neutrophils # 1.45 L (1.80-7.70) X 10*3/uL Monocytes # 0.10 L (0.20-1.00) X 10*3/uL Macrocytosis (manual) 3+ A D-Dimer 1.24 H (<0.60) mg/L FEU POC Glucose (mg/dL) (70-110) mg/dL TSH 11.600 H (0.350-5.500) UIU/ML Crossmatch 02/05/24 02/05/24 02/05/24 Range/Units 12:06 14:55 17:08 WBC (4.50-10.00) X 10*3/uL RBC (4.10-5.20) X 10*6/uL Hgb (12.0-15.0) g/dL Hct (37.2-46.3) % MCV (80.0-97.0) FL MCH (27.0-32.0) pg RDW (11.5-14.5) % Neutrophils # (1.80-7.70) X 10*3/uL Monocytes # (0.20-1.00) X 10*3/uL Macrocytosis (manual) D-Dimer (<0.60) mg/L FEU POC Glucose (mg/dL) 174 H 194 H (70-110) mg/dL TSH (0.350-5.500) UIU/ML Crossmatch See Detail 02/05/24 02/06/24 Range/Units 20:25 05:43 WBC (4.50-10.00) X 10*3/uL RBC (4.10-5.20) X 10*6/uL Hgb (12.0-15.0) g/dL Hct (37.2-46.3) % MCV (80.0-97.0) FL MCH (27.0-32.0) pg RDW (11.5-14.5) % Neutrophils # (1.80-7.70) X 10*3/uL Monocytes # (0.20-1.00) X 10*3/uL Macrocytosis (manual) D-Dimer (<0.60) mg/L FEU POC Glucose (mg/dL) 116 H 137 H (70-110) mg/dL TSH (0.350-5.500) UIU/ML Crossmatch
[2024-02-06 12:20] LABS: Glucose,Whole Blood 127 mg/dL (70-110)
== END 2024-02-06 13:20 | disposition home or self-care (01) ==
LOC: EC 10:17 → 6NMEDSUR 13:50
PROVIDERS: ADMIT Family Medicine; ATTEND Family Medicine
DX: R07.89 Other chest pain (principal); D53.9 Nutritional anemia, unspecified; D72.819 Decreased white blood cell count, unspecified; E11.9 Type 2 diabetes mellitus without complications; E78.2 Mixed hyperlipidemia; E03.9 Hypothyroidism, unspecified; F32.1 Major depressive disorder, single episode, moderate; D51.8 Other vitamin B12 deficiency anemias; I10 Essential (primary) hypertension; Z79.84 Long term (current) use of oral hypoglycemic drugs; Z79.890 Hormone replacement therapy; Z79.899 Other long term (current) drug therapy
CPT/HCPCS: 36430; 96365; 96366; 96372 ×2; 96375; 99285; 36415; 93005; 93306; 86900; 86901; 85379; 84439; 80053 ×3; 84443; 82607; 82728; 82746; 83540; 83550; 83735 ×2; 84484; 85025 ×3; 85610; 85045; 85730; 86850; 86920; 83516; 86340; 83036; 87636; 71046; 71275; G0378 ×3; P9016; J3420 ×2; J2405; J3475; J1171; Q9967

== ENCOUNTER → 2024-08-26 | Outpatient (CLI) | payer OTHER, MEDICARE ==
--- NOTE | 2024-08-26 11:37 | XR ---
EXAMINATION TYPE: XR lumbar spine 2 or 3V DATE OF EXAM: 08/26/2024 CLINICAL HISTORY: pain TECHNIQUE: Three views of the lumbar spine are submitted. COMPARISON: None. FINDINGS: There are 5 lumbar type vertebral bodies identified. No acute fracture. Grade 1 anterolisthesis of L4 on L5 without pars defects. Mild dextrocurvature of the lumbar spine. Vertebral body heights are wit hin normal limits. Minimal multilevel disc space narrowing with endplate sclerosis. The overlying soft tissue appears unremarkable. Atherosclerotic calcification of the aorta. IMPRESSION: 1. No acute fracture or dislocation is seen in the lumbar spine. 2. Minimal multilevel degenerative disc disease. 3. Grade 1 anterolisthesis L4 on L5. [facility], , 08/26/2024 11:35 AM
== END | disposition home or self-care (01) ==
LOC: RADXRMAIN 11:04
PROVIDERS: ATTEND Family Medicine
DX: M51.360 Other intervertebral disc degeneration, lumbar region with discogenic back pain only (principal); M43.16 Spondylolisthesis, lumbar region
CPT/HCPCS: 72100